=== PATIENT | male | born 1950 | race Caucasian/White ===

== ENCOUNTER 2019-04-22 02:11 | Inpatient (IN) | payer OTHER ==
[~2019-04-22] VITALS: Ht 165.1 cm; Wt 88.5 kg
[2019-04-22 02:19] VITALS: Ht 165.1 cm; Wt 88.5 kg
[2019-04-22 03:57] LABS: BASOPHIL % 0.2 % (0-2); PLATELET COUNT 147 x10^3mcL (130-400); RED CELL DISTRIBUTION WIDTH 14.4 % (11.5-14.5)
[2019-04-22 04:18] LABS: ALBUMIN 3.2 g/dL (3.4-5.0); CARBON DIOXIDE 25 mmol/L (21-32); CHLORIDE SERUM 93 mmol/L (98-107); GFR1 8 mL/min; SODIUM SERUM 130 mmol/L (136-145); TOTAL PROTEIN, SERUM 7.9 g/dL (6.4-8.2)
[2019-04-22 04:19] LABS: ALKALINE PHOSPHATASE 120 U/L (46-116); ALT/SGPT 16 U/L (16-63); AST/SGOT 18 U/L (15-37); BILIRUBIN TOTAL 0.44 mg/dL (0.20-1.00); CALCIUM 8.6 mg/dL (8.5-10.1); HDL CHOLESTEROL 39 mg/dL (40-60)
[2019-04-22 04:34] LABS: CHOLESTEROL 159 mg/dL (<200)
[2019-04-22 04:36] LABS: GLUCOSE SERUM 538 mg/dL (74-106)
[2019-04-22 04:37] LABS: CREATININE SERUM 7.2 mg/dL (0.7-1.3)
[2019-04-22 06:55] VITALS: BP 115/31
[2019-04-22 07:47] VITALS: BP 113/56
[2019-04-22 08:14] LABS: CHOLESTEROL/HDL RATIO 4.4
[2019-04-22 08:44] VITALS: BP 113/56
[2019-04-22 09:32] LABS: FREE T4 1.03 ng/dL (0.76-1.46); T4(THYROXINE) 5.7 ug/dL (4.7-13.3)
[2019-04-22 14:57] LABS: T3 TOTAL 0.57 ng/mL
== END 2019-04-22 12:35 | disposition left against medical advice (07) | DRG 189 ==
LOC: ED 02:11 → DU 05:38
PROVIDERS: Emergency Medicine; ADMIT Student in an Organized Health Care Education/Training Program
DX: J96.01 Acute respiratory failure with hypoxia (principal); I21.A1 Myocardial infarction type 2; N17.0 Acute kidney failure with tubular necrosis; N18.6 End stage renal disease; R65.11 Systemic inflammatory response syndrome (SIRS) of non-infectious origin with acute organ dysfunction; I12.0 Hypertensive chronic kidney disease with stage 5 chronic kidney disease or end stage renal disease; J98.01 Acute bronchospasm; R73.9 Hyperglycemia, unspecified; D64.9 Anemia, unspecified; Z91.19 Patient's noncompliance with other medical treatment and regimen; Z99.2 Dependence on renal dialysis; Z79.84 Long term (current) use of oral hypoglycemic drugs; T49.6X5A Adverse effect of otorhinolaryngological drugs and preparations, initial encounter; Y92.018 Other place in single-family (private) house as the place of occurrence of the external cause
CPT/HCPCS: 36600; 82962; 83880; 84439; 87804; G0378; J1815; J2930; J7613; J7644; Q0092